=== PATIENT | male | born 1950 | race African-American/Black ===

== ENCOUNTER 2017-10-30 21:17 | Inpatient (IN) | payer BC ==
[2017-10-30 21:55] VITALS: BP 161/76
[2017-10-31] MEDS: Amoxicillin/Clavulanat 875/125 Tab PO SCH ×2 (08:36→17:06)
[2017-10-31] MEDS: Multivitamin Tab PO SCH (08:36)
[2017-10-31] MEDS ORDERED: GLIPIZIDE PO SCH (09:00)
[2017-10-31 16:50] LABS: A1C % 10.3 % (4.0-6.0)
[2017-10-31] MEDS: Therahoney Gel 42.5gm Tube TP SCH (17:06)
[2017-10-31] MEDS: INSULIN ASPART SLIDING SCALE 100 UNITS/ML UNIT SUBQ SCH (21:48)
--- NOTE | 2017-11-01 05:48 | Psychosocial Evaluation ---
DATE OF SERVICE: 10/30/2017 PSYCHIATRIC EVALUATION AND MENTAL STATUS EXAMINATION IDENTIFYING DATA: The patient is a 67-year-old male admitted here on a 5150 as being gravely disabled. CHIEF COMPLAINT: "I do not know why they have to bring me in here." HISTORY OF PRESENT ILLNESS: This is the first psychiatric hospitalization to [facility] for this patient who has been initially brought to the [facility] for evaluation. The patient is reported to have been complaining of pain after a fall while in the Emergency Room. The patient is reported to have been actively responding to internal stimuli, not making any sense and noted to be actively paranoid and agitated and hence has been placed on 5150 and admitted over here for stabilization. During the interview, the patient is not providing much information, but actively responding to internal stimuli and the patient is going on tangent and states that he does not need to give any information and reporting that ____ talking to him. The patient is reported to have a diagnosis of psychosis and unable to care for self and hence the patient has been admitted over here for stabilization. PAST PSYCHIATRIC HISTORY: Details about the prior psychiatric hospitalizations are not known. SUBSTANCE ABUSE HISTORY: Details are not known at this time. The patient is not providing much of any information. MEDICAL HISTORY AND PHYSICAL EXAMINATION: Requested to be done by Dr. Jules. LEGAL PROBLEMS: None at this time. STRENGTH AND ASSETS: The patient seems to be superficially cooperative. MENTAL STATUS EXAMINATION: The patient is noncooperative at this time and not getting much of information. The patient is actively responding to the internal stimuli. Insight and judgment are noted to be impaired. Impulse control seems to be poor. Coping skills are noted to be poor. The patient is getting easily irritable at this time. The patient's behavior is likely a danger to self and the patient is not able to care for self. DIAGNOSTIC IMPRESSION: AXIS I: Bipolar disorder by history, rule out schizoaffective disorder. AXIS II: None. AXIS III: As per Dr. Jules. IMMEDIATE TREATMENT PLAN: The patient is going to be observed on the inpatient unit, provided with supportive psychotherapy. The patient is going to be closely monitored. Encouraged to participate in the groups and verbalize the concerns. The patient is going to be maintained on the p.r.n. doses of the medications and once the patient is able to provide much of information, the patient is going to be titrated on the antipsychotic medications. ESTIMATED LENGTH OF STAY: 5-7 days. DISCHARGE CRITERIA: When he no longer is a threat to self or others and be able to cope up with the stress. [facility]# [id number]
[2017-11-01] MEDS: INSULIN ASPART SLIDING SCALE 100 UNITS/ML UNIT SUBQ SCH ×4 (07:03→21:27)
[2017-11-01] MEDS: Therahoney Gel 42.5gm Tube TP SCH (08:37)
[2017-11-01] MEDS: Multivitamin Tab PO SCH (08:37)
[2017-11-01] MEDS: Amoxicillin/Clavulanat 875/125 Tab PO SCH ×2 (08:37→17:38)
--- NOTE | 2017-11-02 03:12 | Progress Notes ---
DATE: 11/01/2017 SUBJECTIVE: Staff was spoken to. The patient is interviewed. Mood is irritable. Affect is constricted. Insight and judgment at this time are noted to be still impaired. Impulse control is noted to be limited. The patient is actively responding to internal stimuli. The patient has been able to tolerate the Haldol at this time. No side effects to the medications are noted and hence it is decided to increase the dose on the Haldol to 2 mg twice a day and closely monitor the patient with the supportive therapy. ASSESSMENT: The patient is still psychotic, not able to contract for safety. PLAN: To continue the patient with the supportive therapy and follow. JOB# [id number]
--- NOTE | 2017-11-02 03:20 | Consultation ---
DATE OF CONSULTATION: 10/31/2017 PRIMARY CARE PHYSICIAN: Dr. Jules. CHIEF COMPLAINT: A 67-year-old male who was brought to the Emergency with complaint of depression. HISTORY OF PRESENT ILLNESS: The patient has been depressed and was brought to the Emergency Room. Psych consultation was done. The patient admitted to [facility] infectious and medical consultation was requested as a coverage for Dr. Jules. PAST MEDICAL HISTORY: Type 2 diabetes, left knee swelling. FAMILY HISTORY: Negative. SOCIAL HISTORY: Nonsmoker. ALLERGIES: To DIVALPROEX, SODIUM. REVIEW OF SYSTEMS: A 14-point review of system negative. Also, he complains of left knee swelling and has right great toe wound. The patient denies any systemic symptoms. PHYSICAL EXAMINATION: GENERAL: The patient is alert, awake, elderly male. VITAL SIGNS: Temperature 97.4, pulse 88, respirations 19, blood pressure 160/76. HEENT: Mild pallor, no icterus or plaque. NECK: Supple. LUNGS: Breath sounds bilateral. CARDIOVASCULAR: S1. ABDOMEN: Soft. EXTREMITIES: Left knee swelling present with local increased temperature. No cellulitis seen. No open wound. DIAGNOSES: Left knee bursitis. Ortho consult requested regarding diabetes. The patient on Accu-Chek with coverage started with low dose insulin, depression, managed by Dr. Jefferson. Allergy DIVALPROEX avoid. Rest of the care as ordered in CPOE. Thank you, Dr. Jefferson for this consultation. JOB# [id number]
--- NOTE | 2017-11-02 03:34 | Consultation ---
DATE OF CONSULTATION: 11/01/2017 REFERRING PHYSICIAN: Dr. Sofya Jefferson. TYPE OF CONSULTATION: Psychology. HISTORY OF PRESENT ILLNESS: The patient is a 67-year-old male, who is being admitted on a 5150 hold as being gravely disabled. The following is by record review and by the patient's self report. The patient has been interviewed and evaluated. The patient is reported to have been complaining of pain after a fall while in the Emergency Room. The patient appears to be responding to internal stimuli and is not making much sense at the time of this interview. There is some evidence of paranoid ideation. The patient seems to be agitated. The patient responded at times irrelevantly to the clinical questions. The patient did not answer questions about experiencing any suicidal ideation, plan or intention. PAST MEDICAL HISTORY: Please see history and physical by Dr. Jules. PAST PSYCHIATRIC HISTORY: The details are unknown at the time of this interview. SUBSTANCE ABUSE HISTORY: The patient did not answer this question. PSYCHOSOCIAL HISTORY: The patient did not answer questions about occupational or educational history or orthodox affiliation. The patient did not answer questions about history of physical or sexual abuse or about any current legal problems. The patient did not answer questions about family relationships or family support. MENTAL STATUS EXAMINATION: The patient appears to be his stated age. Attitude is mostly uncooperative. The patient is not making much sense. Eye contact is poor. Mood is agitated and irritable. The patient did not answer questions about delusions or hallucinations. It appears the patient is responding to internal stimuli. Thought process shows to be confused and markedly tangential. The patient was not answering questions relevantly. The patient is easily irritated and agitated on the unit. Impulse control is poor. Concentration is poor. The patient did not participate in the memory assessment. Sensorium is alert and oriented to self only. The patient did not participate in the interpretation of proverbs. Insight is impaired. Judgment is impaired. DIAGNOSTIC IMPRESSION: AXIS I: Bipolar disorder by history. AXIS II: Deferred. AXIS III: Please see history and physical by Dr. uJles. TREATMENT PLAN: The patient has been seen by Dr. Jefferson for psychiatric evaluation and for the management of the patient's psychotropic medications. We will provide supportive psychotherapy to include a simple deescalation skill as well as motivational enhancement for the patient to become compliant with all aspects of his care and treatment. We will encourage the patient to verbalize his concerns versus acting out. We will try to encourage the patient to regulate his emotions and we will provide anger management as well. We will provide continuous opportunities for the patient to verbally contract for safety, i.e., no self-harm or harm to others. We will expect the patient to be able to demonstrate regulation of his emotions and to be able to stay compliant with all aspects of his care and treatment prior to discharge. We will also expect the patient to be able to contract for safety prior to discharge. Thank you, Dr. Jefferson for this consult and the opportunity to participate review in this patient's care. JOB# [id number] BENJAMIN
[2017-11-02] MEDS: INSULIN ASPART SLIDING SCALE 100 UNITS/ML UNIT SUBQ SCH ×4 (06:32→21:01)
[2017-11-02] MEDS: Amoxicillin/Clavulanat 875/125 Tab PO SCH ×2 (08:15→17:22)
[2017-11-02] MEDS: Multivitamin Tab PO SCH (08:15)
[2017-11-02] MEDS: Therahoney Gel 42.5gm Tube TP SCH (08:15)
--- NOTE | 2017-11-02 22:23 | Progress Notes ---
DATE: 11/02/2017 SUBJECTIVE: Staff was spoken to. The patient is interviewed. Mood is noted to be irritable. Affect is constricted. Continues to be paranoid and is insisting that he should be leaving, he cannot be in here. Coping skills at this time are noted to be very poor. No side effects to the medications are noted. ASSESSMENT: The patient is still psychotic. PLAN: To continue the patient with the supportive therapy and followup. JOB# [id number]
[2017-11-03] MEDS: INSULIN ASPART SLIDING SCALE 100 UNITS/ML UNIT SUBQ SCH ×4 (06:49→21:27)
[2017-11-03] MEDS: Multivitamin Tab PO SCH (09:42)
[2017-11-03] MEDS: Amoxicillin/Clavulanat 875/125 Tab PO SCH ×2 (09:42→18:03)
[2017-11-03] MEDS: Therahoney Gel 42.5gm Tube TP SCH (09:49)
--- NOTE | 2017-11-03 11:10 | Diagnostic Imaging Report ---
Left knee (4 views) HISTORY: Pain Marked narrowing patellofemoral joint space along with hypertrophic bone formation. Spur formation noted about the lateral femoral condyle and lateral tibial plateau. Chondrocalcinosis is seen. A calcific density projects along the anterior joint space region. An additional calcific density seen in the suprapatellar area. Findings may be associated with the synovium. IMPRESSION: 1. Degenerative joint disease 2. Chondrocalcinosis probably related to degenerative change 3. Calcific densities that may be associated with the synovium (question synovial chondromatosis). If needed, a follow-up MRI exam would provide additional assessment. 4. No acute abnormalities
--- NOTE | 2017-11-03 16:32 | Infectious Disease Prog Note ---
Infectious Disease Subjective - Review of Systems Service Date: 11/03/17 Subjective: cc diabetic foot infection hpi- ortho consult requested again x ray l knee shows chondrocalcinosis ros no fevr o/e vvs chest claer abd soft l knee swollen fot wound dx dm metfornmin wounfd infection augmentin knee swelling pe rortho plan as above Infectious Disease Objective - Results Recent Labs: Laboratory Last Values Hemoglobin A1c % 10.3 % (4.0-6.0) H 10/31/17 06:55 - Physical Exam Vitals and I&O: Vital Signs Temp 97.4 F 11/02/17 20:00 Pulse 75 11/02/17 20:00 Resp 19 11/02/17 20:00 BP 123/62 11/02/17 20:00 Pulse Ox 100 11/02/17 16:50 Intake & Output 11/02/17 11/03/17 11/03/17 18:59 06:59 18:59 Intake Total 480 Balance 480 Intake: Oral 480 Other: # Voids 2 Active Medications: Current Medications Acetaminophen (Tylenol) 650 mg PO Q4HR PRN PRN Reason: Mild Pain / Temp above 100 Stop: 12/29/17 22:06 Last Admin: 11/03/17 09:52 Dose: 650 mg Amoxicillin/Clavulanate Potassium (Augmentin 875-125mg) 1 tab PO BID [facility] Stop: 11/09/17 17:01 Last Admin: 11/03/17 09:42 Dose: 1 tab Glipizide (Glucotrol) 10 mg PO BIDWM [facility] Stop: 12/30/17 07:59 Last Admin: 11/03/17 09:42 Dose: 10 mg Haloperidol (Haldol) 2 mg PO BID SAM PRN Reason: Protocol Stop: 12/31/17 17:58 Last Admin: 11/03/17 09:42 Dose: 2 mg Insulin Aspart (Novolog Insulin Sliding Scale) 0 units SUBQ ACHS SAM PRN Reason: Protocol Stop: 12/30/17 20:59 Last Admin: 11/03/17 12:32 Dose: Not Given Lorazepam (Ativan) 0.5 mg PO Q4HR PRN; Protocol PRN Reason: Anxiety Stop: 11/29/17 22:06 Last Admin: 11/03/17 06:42 Dose: 0.5 mg Multivitamins/Vitamin C (Theragran) 1 tab PO DAILY SAM Stop: 12/30/17 08:59 Last Admin: 11/03/17 09:42 Dose: 1 tab Wound Care/Dressing Products (Therahoney) 1 appl TP DAILY SAM Stop: 12/30/17 15:59 Last Admin: 11/03/17 09:49 Dose: Not Given Zolpidem Tartrate (Ambien) 5 mg PO HS PRN PRN Reason: Insomnia Stop: 12/29/17 22:06 Last Admin: 11/02/17 21:23 Dose: 5 mg Nutritional Asmnt/Malnutr-PDOC - Dietary Evaluation Malnutrition Findings (Please click <Entered> for more info): Nutritional Asmnt/Malnutrition Start: 11/01/17 17: 58 Text: Status: Complete Freq: Document 11/01/17 17:58 BEBE (Rec: 11/01/17 18:06 MURRAY [email or web address]) Nutritional Asmnt/Malnutrition Patient General Information Nutritional Screening Moderate Risk Diagnosis schizophrenia Pertinent Medical Hx/Surgical Hx not indicated, no H&P at this time Subjective Information consult received for right great tow wound. Pt seen sleeping at time of visit, PO intake 100%. Current Diet Order/ Nutrition Support CCHO-60gm Pertinent Medications glucotrol, novolog, theragran Pertinent Labs 5/3 A1c 10.3 Nutritional Hx/Data Height 1.85 m Height (Calculated Centimeters) 185.4 Current Weight (lbs) 90.718 kg Weight (Calculated Kilograms) 90.7 Weight (Calculated Grams) 83378.5 [place] Body Weight 184 Body Mass Index (BMI) 26.4 Weight Status Overweight GI Symptoms GI Symptoms None Last BM 5/3 Difficult in: None Skin Integrity/Comment: decubitus ulcer right great toe Current %PO Good (75-100%) Estimated Nutritional Goals Calories/Kcals/Kg 25-30 based on IBW 84kg Kcals Calculated 3975-0768 Protein g/k-1.2 Protein Calculated 84-101 Fluid: ml 2100-2520ml (1ml/kcal) Nutritional Problem 2. Problem Problem altered nutrition related labs Etiology possible DM Signs/Symptoms: A1c 10.3 1. Problem Problem increased nutrition needs Etiology increased metaboilic demand for wound healing Signs/Symptoms: pressure ulcer Malnutrition Alert Protein-Calorie Malnutrition N/A Is there a minimum of two criteria No selected? Query Text:Check all the applicable criteria. A minimum of two criteria are recommended for diagnosis of either severe or non-severe malnutrition. Intervention/Recommendation Comments 1. Continue with [facility] 60gm diet as ordered. 2. Monitor PO intake, wt, labs and skin integrity 3. F/U as low risk in 7 days, 11/08 Expected Outcomes/Goals Expected Outcomes/Goals 1. PO intake to meet at least 75% of nutritional needs. 2. Wt stability, skin to remain intact, labs to approach WNL.
--- NOTE | 2017-11-03 19:00 | Progress Notes ---
DATE: 11/03/2017 SUBJECTIVE: Staff was spoken to. The patient is interviewed. Mood is noted to be irritable. Affect is constricted. Coping skills are noted to be still poor. Insight and judgment are also noted to be impaired. The patient has been having difficult time to cope with the stress. The patient is stating that he does not want to take the Seroquel, does not want to take the Zyprexa, does not want to take any Risperdal. The patient is stating that he is going to be falling down and does not want to hurt his knee. ASSESSMENT: The patient is still psychotic. PLAN: To continue the patient with the current medications. I encouraged the patient to verbalize the concerns rather than to act out. JOB# [id number]
[2017-11-04] MEDS: INSULIN ASPART SLIDING SCALE 100 UNITS/ML UNIT SUBQ SCH ×4 (07:01→21:29)
[2017-11-04] MEDS: Multivitamin Tab PO SCH (08:16)
[2017-11-04] MEDS: Amoxicillin/Clavulanat 875/125 Tab PO SCH ×2 (11:35→17:14)
--- NOTE | 2017-11-05 01:30 | Progress Notes ---
DATE: 11/04/2017 SUBJECTIVE: Staff was spoken to. The patient is interviewed. The patient is still responding to internal stimuli. The patient's coping skills are noted to be poor. The patient is stating that ____ all over and the patient is reporting that he is not able to relax. The patient is responding to internal stimuli. The patient is currently on 2 mg of haloperidol twice a day and has been able to tolerate the medications. No side effects to the medications are noted. The patient has no place to return to. Plan to continue the patient with the supportive therapy. We encouraged the patient to verbalize the concerns rather than to act out. ASSESSMENT: The patient is still psychotic. PLAN: To increase the dose on the Haldol to 5 mg and follow the patient with the supportive therapy. The patient is also having no place to return to. JOB# [id number]
[2017-11-05] MEDS: INSULIN ASPART SLIDING SCALE 100 UNITS/ML UNIT SUBQ SCH ×4 (06:34→21:27)
[2017-11-05] MEDS: Amoxicillin/Clavulanat 875/125 Tab PO SCH ×2 (08:18→17:10)
[2017-11-05] MEDS: Multivitamin Tab PO SCH (08:18)
--- NOTE | 2017-11-05 15:02 | Progress Notes ---
DATE: 11/05/2017 SUBJECTIVE: Staff was spoken to. The patient is interviewed. Mood is noted to be irritable. Affect is constricted. The patient is stating that he has been trying to find some place, but so far, none is available. Coping skills at this time are noted to be poor. Sleep and appetite also noted to be very poor. The patient has been having paranoia, but denies any command hallucinations. The patient's Haldol has been increased yesterday. ASSESSMENT: The patient is still psychotic and awaiting placement. PLAN: To continue the patient with the supportive therapy and followup. JOB# [id number]
[2017-11-06] MEDS: INSULIN ASPART SLIDING SCALE 100 UNITS/ML UNIT SUBQ SCH ×4 (06:54→21:09)
[2017-11-06] MEDS: Therahoney Gel 42.5gm Tube TP SCH (08:40)
[2017-11-06] MEDS: Multivitamin Tab PO SCH (08:41)
[2017-11-06] MEDS: Amoxicillin/Clavulanat 875/125 Tab PO SCH ×2 (08:41→17:08)
--- NOTE | 2017-11-07 00:33 | Progress Notes ---
DATE: 11/06/2017 SUBJECTIVE: Staff was spoken to. The patient is interviewed. Mood is noted to be irritable. Affect is constricted. Coping skills are noted to be poor. The patient has been having difficult time to get up and walk. The patient has still stating that he has applied for section 8 housing and needs to get into that. The patient has paranoid delusions, but denies any command hallucinations. The patient has no place to return to. ASSESSMENT: The patient is psychotic and gravely disabled. PLAN: To continue the patient's current medications. I encouraged the patient to verbalize the concerns rather than to act out. JOB# [id number]
[2017-11-07] MEDS: INSULIN ASPART SLIDING SCALE 100 UNITS/ML UNIT SUBQ SCH ×4 (06:44→21:20)
[2017-11-07] MEDS: Multivitamin Tab PO SCH (09:11)
[2017-11-07] MEDS: Amoxicillin/Clavulanat 875/125 Tab PO SCH ×2 (09:11→17:39)
[2017-11-07] MEDS: Therahoney Gel 42.5gm Tube TP SCH (09:11)
--- NOTE | 2017-11-07 23:49 | Progress Notes ---
DATE: 11/07/2017 SUBJECTIVE: Staff was spoken to. The patient is interviewed. Mood is noted to be irritable. Affect is constricted. Insight and judgment at this time are noted to be still impaired. Impulse control seems to be limited. The patient has paranoid delusions. The patient is currently on Haldol 5 mg and has been able to tolerate the medications. No side effects to the medications are noted. The patient has been insisting on getting out of here, but the patient has no place to return to. ASSESSMENT: The patient is still psychotic. PLAN: To continue the patient with the supportive therapy and work with the telephonic case manager with regards to placement. JOB# [id number]
[2017-11-08] MEDS: INSULIN ASPART SLIDING SCALE 100 UNITS/ML UNIT SUBQ SCH ×4 (07:04→21:40)
[2017-11-08] MEDS: Therahoney Gel 42.5gm Tube TP SCH (08:34)
[2017-11-08] MEDS: Multivitamin Tab PO SCH (08:35)
[2017-11-08] MEDS: Amoxicillin/Clavulanat 875/125 Tab PO SCH ×2 (11:56→17:09)
[2017-11-08] MEDS ORDERED: Probiotic Screen MC PRN (13:43)
--- NOTE | 2017-11-08 23:14 | Progress Notes ---
DATE: 11/08/2017 PSYCHIATRIC PROGRESS NOTE Staff was spoken to. The patient is interviewed. Mood is noted to be irritable. Affect is constricted. Insight and judgment are noted to be still impaired. Impulse control is noted to be poor. Coping skills are noted to be poor. The patient has been having difficult time to cope with the stress. The patient is stating that he has been looking for work for section 8 housing, but is not coming through. The patient at this time is being awaiting placement. JOB# [id number]
[2017-11-09] MEDS: INSULIN ASPART SLIDING SCALE 100 UNITS/ML UNIT SUBQ SCH ×4 (06:48→21:45)
[2017-11-09] MEDS: Amoxicillin/Clavulanat 875/125 Tab PO SCH ×2 (08:51→17:14)
[2017-11-09] MEDS: Therahoney Gel 42.5gm Tube TP SCH (08:51)
[2017-11-09] MEDS: Multivitamin Tab PO SCH (08:52)
--- NOTE | 2017-11-09 12:52 | Progress Notes ---
DATE: 11/09/2017 SUBJECTIVE: Staff was spoken to. The patient is interviewed and noted to be irritable. Affect is constricted. The patient's insight and judgment at this time are noted to be still improving. Impulse control seems to be fair. Paranoid delusions are noted, but the patient denies any command hallucinations. The patient is currently on 5 mg of the Haldol twice a day and has been able to tolerate the medications. No side effects to the medications are noted. The patient has been having difficult time to cope with the stress. The patient's blood sugar is going to be closely monitored, it is 173 now. The patient has been awaiting placement. daycare manager has been spoken to and they have been referring the patient several different places, so far no placement has been available. ASSESSMENT: The patient's psychosis is resolving. PLAN: To continue the patient with the supportive therapy. I encouraged for the patient to be placed. JOB# [id number]
--- NOTE | 2017-11-10 02:18 | Consultation ---
DATE OF CONSULTATION: 11/09/2017 ORTHOPEDIC SURGERY CONSULTATION HISTORY OF PRESENT ILLNESS: The patient is a 67-year-old -Citizen [place] man, admitted to [facility] via the Emergency Room on 10/30/2017 because of depression and psychiatric problems. He was noted to have swelling of the left knee and he complained of pain. I was called in orthopedic consultation regarding his left knee complaints. I attempted to interview the patient and could not get much information from him. He said he has arthritis of the knee and it hurts. I have been told he also has had a diabetic infection of his right foot. He would not let me take his hospital socks off to examine his feet. Additional history is not available. PHYSICAL EXAMINATION: GENERAL: The patient is examined in his hospital room. He did not want to get up out of bed for the examination. EXTREMITIES: The upper extremities are unremarkable. The right lower extremity - the knee is benign with good range of motion, strength and stability. Left knee, there is a 1+ effusion and limitation of motion at extension 160-165 degrees and flexion 90 degrees. There is no instability. NEUROLOGIC: I cannot obtain any reflexes in the lower extremities. Sensation is hard for him to cooperate. ____ testing in various areas below the knees, but it is scattered. IMAGING STUDIES: I reviewed images in the PACS of the patient's left knee four views dated 11/03/2017; there are advanced osteoarthritic changes throughout with loose bodies and [id number] in the medial compartment. ORTHOPEDIC DIAGNOSIS: Osteoarthritis, left knee. RECOMMENDATIONS: The patient can be treated with NSAIDs, analgesic medication as appropriate, physical therapy for local symptomatic treatment and range of motion and strengthening exercises regarding his left knee. He can ambulate with weightbearing as tolerated, but should have a walker that he might advance to a cane. He could be considered for knee replacement surgery at some time in the future. Thank you for this interesting referral. JOB# [id number]
[2017-11-10] MEDS: INSULIN ASPART SLIDING SCALE 100 UNITS/ML UNIT SUBQ SCH ×4 (07:07→21:56)
[2017-11-10] MEDS: Multivitamin Tab PO SCH (08:04)
[2017-11-10] MEDS: Therahoney Gel 42.5gm Tube TP SCH (08:04)
--- NOTE | 2017-11-10 18:03 | Progress Notes ---
DATE: 11/10/2017 PSYCHIATRIC PROGRESS NOTE SUBJECTIVE: Staff was spoken to. The patient is interviewed. Mood is noted to be irritable. Affect is constricted. The patient is stating that he has been doing fairly well and there is no reason for him to be in here to locked up and the housing case manager has been mentioning that they have been trying to look for the placement in a senior care place the facility and the insurance has been reluctant to let the patient go to a senior care facility. The patient is being closely monitored and housing case manager has been requested to look into alternatives for the senior care facility and patient is going to be closely monitored. No side effects to the medications are noted at this time. ASSESSMENT: The patient is still paranoid, but not aggressive. PLAN: To continue the patient with haloperidol 5 mg twice a day and follow the patient. JOB# [id number]
[2017-11-11] MEDS: INSULIN ASPART SLIDING SCALE 100 UNITS/ML UNIT SUBQ SCH ×5 (06:54→21:00)
[2017-11-11] MEDS: Multivitamin Tab PO SCH (08:57)
[2017-11-11] MEDS: Therahoney Gel 42.5gm Tube TP SCH (08:58)
[2017-11-12] MEDS: INSULIN ASPART SLIDING SCALE 100 UNITS/ML UNIT SUBQ SCH ×4 (06:57→21:38)
[2017-11-12] MEDS: Multivitamin Tab PO SCH (08:36)
[2017-11-12] MEDS: Therahoney Gel 42.5gm Tube TP SCH (08:37)
--- NOTE | 2017-11-12 10:35 | Progress Notes ---
DATE: 11/11/2017 SUBJECTIVE: Staff was spoken to. The patient is interviewed. Mood is noted to be irritable. Affect is constricted. The patient's insight and judgment at this time are noted to be still impaired. Impulse control is noted to be improving. No side effects to the medications are noted. However, the patient has no place to return to, the staff are mentioning that they have faxed information to several different places and so far no one is willing to accept the patient. PLAN: To continue the patient with the supportive therapy. I encouraged the patient to ____ concern, await for placement. JOB# [id number]
--- NOTE | 2017-11-12 14:12 | Progress Notes ---
DATE: 11/12/2017 SUBJECTIVE: Staff was spoken to. The patient is interviewed. Mood is noted to be anxious. Affect is appropriate. The patient's insight and judgment at this time are noted to be improving. Impulse control seems fair. The patient has been stating that he is getting frustrated for being in here for too long. The patient is currently on Haldol and has been able to tolerate the medication. No side effects to the medications are noted, but the patient has no place to return to. ASSESSMENT: The patient is stabilizing and awaiting placement. PLAN: To continue the patient with the supportive therapy and followup. JOB# [id number]
[2017-11-13] MEDS: INSULIN ASPART SLIDING SCALE 100 UNITS/ML UNIT SUBQ SCH ×2 (06:37→12:00)
[2017-11-13] MEDS: Multivitamin Tab PO SCH (09:15)
--- NOTE | 2017-11-13 20:39 | Discharge Summary ---
DATE OF DISCHARGE: 11/13/2017 IDENTIFYING DATA: The patient is a 67-year-old male admitted here for [facility] as being gravely disabled. CHIEF COMPLAINT: "I do not know why they have to bring me in here." DIAGNOSES AT THE TIME OF ADMISSION: 1. Bipolar disorder by history. 1b. Rule out schizoaffective disorder. AXIS II: None. AXIS III: As per Dr. Jules. HISTORY OF PRESENT ILLNESS: Please refer the 10/31/2017 dictation done by me. Physical examination at the time of admission was done by Dr. Jules and noted significant for type 2 diabetes mellitus, left knee swelling. HOSPITAL COURSE AND RESPONSE TO TREATMENT: The patient has been observed on inpatient unit, provided with supportive psychotherapy. The patient has been closely monitored. Encouraged to participate in groups and verbalize the concerns. The patient has been continued on his glipizide for his blood sugar. The patient has been placed on haloperidol 5 mg twice a day and the patient has been closely monitored for his psychosis. Placement became a problem and the patient has been encouraged to participate in the groups and verbalize the concerns. The patient started to stabilize and hence was discharged on 11/13/2017. The patient has been discharged to [facility]. MENTAL STATUS EXAMINATION: At the time of discharge, the patient's mood is noted to be anxious. Affect is appropriate. Not suicidal or homicidal. Insight and judgment are noted to be improving. Impulse control seems to be fair. Coping skills are also noted to be fair. No side effects to the medications are noted. The patient has been able to verbalize the concerns rather than to act out at the time of the discharge. CONDITION: At the time of discharge noted to be stable. The patient is not presenting with any threats to harm self or others. DIAGNOSES AT THE TIME OF DISCHARGE: 1. Schizophrenia, chronic paranoid type. AXIS II: None. AXIS III: None. AFTERCARE PLAN: The patient is discharged to [facility] to be followed up on an outpatient basis. PROGNOSIS: At the time of discharge noted to be fair with the treatment. JOB# [id number]
== END 2017-11-13 16:20 | DRG 885 ==
LOC: GERO2 21:17
PROVIDERS: ADMIT Psychiatry & Neurology Psychiatry; ATTEND Psychiatry & Neurology Psychiatry
DX: F20.0 Paranoid schizophrenia (principal); E11.628 Type 2 diabetes mellitus with other skin complications; L08.89 Other specified local infections of the skin and subcutaneous tissue; F31.9 Bipolar disorder, unspecified; M70.52 Other bursitis of knee, left knee; F29 Unspecified psychosis not due to a substance or known physiological condition; F41.9 Anxiety disorder, unspecified; Z88.8 Allergy status to other drugs, medicaments and biological substances; Y93.89 Activity, other specified
CPT/HCPCS: 36415-UA; 73562-TC-LT; 82948-90; 83036-90; 97530; J1815; X3904; Z7610